=== PATIENT | female | born 1980 | race Caucasian/White ===

== ENCOUNTER 2017-08-10 13:07 | Emergency (ER) | payer MEDICAID, OTHER ==
[2017-04-20 17:43] VITALS: Wt 81.6 kg
[~2017-08-10 13:07] MED LIST: AZIT500T47 PO; BACDS PO; CYCL-332 PO; IBU800 PO; IBUP800T37 PO; IRON1TAB55 PO; LOR5/325 PO; OXYC-717 PO; OXYC-865 PO; PER PO; SULF1TAB24 PO
--- NOTE | 2017-08-10 13:39 | ER Report ---
History and Physical Time Seen By MD: 13:33 Hx. of Stated Complaint: pt reports intermittent R side back pain radiating to back HPI/ROS CHIEF COMPLAINT: Right-sided flank pain HISTORY OF PRESENT ILLNESS: Patient is a 37-year-old female who presents to the emergency department for evaluation of right-sided flank pain that radiates into the groin which has been intermittent over the past 1-2 weeks. Last menstrual period was approximately 4 weeks ago and reportedly normal. Currently she states the pain is very mild less than 1 out of 10 in intensity. No other associated features. Patient has had episodes where the pain does come on and is quite severe. She denies any fevers or chills. She denies any abnormal vaginal bleeding. She was seen by her AVIATION CONSULTANT today Dr. Zuñiga who did a pelvic exam along with cultures. Apparently he also dmitriy some blood work but that is not available resulted in the computer at this time. She denies any recent trauma. It was suggested that she come to the emergency department for further evaluation OBTAIN ultrasound REVIEW OF SYSTEMS: Respiratory: No cough, no dyspnea. Cardiovascular: No chest pain, no palpitations. Gastrointestinal: No vomiting, no abdominal pain. Right-sided flank pain Musculoskeletal: No back pain. Allergies: Coded Allergies: Penicillins (Unverified Allergy, Unknown, 01/03/16) Home Meds Discontinued Scripts Hydrocodone Bit/Acetaminophen (HYDROCODON-ACETAMINOPHEN 5-325) 1 Each Tablet, 1 EACH PO Q4-6H Y for PAIN, #10 TAB 0 Refills Prov:BRANDON JOHNSON MD 04/21/17 Ibuprofen (IBUPROFEN) 800 Mg Tablet, 1 TAB PO Q8H Y for PAIN, #30 TAB 0 Refills Take with food for pain no closer than every 8 hours. Prov:BRANDON JOHNSON MD 04/21/17 Sulfamethoxazole/Trimethoprim (SULFAMETHOXAZOLE-TMP DS TABLET) 1 Each Tablet, 1 EACH PO BID, #14 TAB 0 Refills Prov:BRANDON JOHNSON MD 04/21/17 Past Medical/Surgical History Noncontributory Hx Smoking: No Smoking Status: Never Smoker Exposure to Second Hand Smoke?: No Hx Substance Use Disorder: No Hx Alcohol Use: No Constitutional Vital Sign - Last 24 Hours 08/10/17 13:15 Temp 99.0 Pulse 68 Resp 16 B/P (MAP) 136/70 Pulse Ox 98 O2 Delivery Room Air Physical Exam General Appearance: The patient is alert, has no immediate need for airway protection and no current signs of toxicity. Eyes: Pupils equal and round no injection. Respiratory: Chest is non tender, lungs are clear to auscultation. Cardiac: regular rate and rhythm Gastrointestinal: Abdomen is soft and non tender, no masses, bowel sounds normal. Musculoskeletal: Neck: Neck is supple and non tender. Extremities have full range of motion and are non tender. Skin: No rashes or lesions. Medical Decision Making Data Points Laboratory Hematology Test 08/10/17 13:12 Urine Color Straw Urine Clarity Clear Urine pH 7.0 pH (4.8-9.5) Urine Specific [place] 1.012 Urine Protein Negative mg/dL (NEGATIVE) Urine Glucose (UA) Negative mg/dL (NEGATIVE) Urine Ketones Negative mg/dL (NEGATIVE) Urine Blood Moderate (NEGATIVE) Urine Nitrite Negative (NEGATIVE) Urine Bilirubin Negative (NEGATIVE) Urine Urobilinogen Negative mg/dL (0.2-1.9) Urine Leukocyte Esterase Negative (NEGATIVE) Urine RBC 4 /HPF (0-2/HPF) Urine WBC <1 /HPF (0-5/HPF) Urine Squamous Epithelial Cells Many /LPF (</=FEW) Urine Bacteria Few /HPF (NONE-FEW) Urine Mucus None /HPF (NONE-FEW) Urine HCG, Qualitative Negative (NEGATIVE) Chemistry Test 08/10/17 13:12 Urine Color Straw Urine Clarity Clear Urine pH 7.0 pH (4.8-9.5) Urine Specific [place] 1.012 Urine Protein Negative mg/dL (NEGATIVE) Urine Glucose (UA) Negative mg/dL (NEGATIVE) Urine Ketones Negative mg/dL (NEGATIVE) Urine Blood Moderate (NEGATIVE) Urine Nitrite Negative (NEGATIVE) Urine Bilirubin Negative (NEGATIVE) Urine Urobilinogen Negative mg/dL (0.2-1.9) Urine Leukocyte Esterase Negative (NEGATIVE) Urine RBC 4 /HPF (0-2/HPF) Urine WBC <1 /HPF (0-5/HPF) Urine Squamous Epithelial Cells Many /LPF (</=FEW) Urine Bacteria Few /HPF (NONE-FEW) Urine Mucus None /HPF (NONE-FEW) Urine HCG, Qualitative Negative (NEGATIVE) Urinalysis Test 08/10/17 13:12 Urine Color Straw Urine Clarity Clear Urine pH 7.0 pH (4.8-9.5) Urine Specific [place] 1.012 Urine Protein Negative mg/dL (NEGATIVE) Urine Glucose (UA) Negative mg/dL (NEGATIVE) Urine Ketones Negative mg/dL (NEGATIVE) Urine Blood Moderate (NEGATIVE) Urine Nitrite Negative (NEGATIVE) Urine Bilirubin Negative (NEGATIVE) Urine Urobilinogen Negative mg/dL (0.2-1.9) Urine Leukocyte Esterase Negative (NEGATIVE) Urine RBC 4 /HPF (0-2/HPF) Urine WBC <1 /HPF (0-5/HPF) Urine Squamous Epithelial Cells Many /LPF (</=FEW) Urine Bacteria Few /HPF (NONE-FEW) Urine Mucus None /HPF (NONE-FEW) Urine HCG, Qualitative Negative (NEGATIVE) EKG/Imaging Imaging Ultrasound shows a resolving right corpus luteal cyst. ED Course/Re-evaluation ED Course 08/10/2017 1:37:08 pm patient with right-sided flank pain. Bedside ultrasound reveals normal appearance of the kidney without evidence of hydronephrosis. Urinalysis shows moderate blood. Patient did have a MANAGER TITLE exam by her AVIATION CONSULTANT today. Blood was drawn and cervical cultures were obtained. The results of these tests are not yet available. Plan will be to obtain a transvaginal non-OB ultrasound. Looking for potential ovarian cyst. If normal will consider noncontrast CT of the abdomen and pelvis to consider for Decision to Disposition Date: Aug 10, 2017 Decision to Disposition Time: 14:32 Depart Departure Latest Vital Signs Vital Signs Date Time Temp Pulse Resp B/P (MAP) Pulse Ox O2 Delivery O2 Flow Rate FiO2 08/10/17 13:15 99.0 68 16 136/70 98 Room Air Impression: Primary Impression: Ovarian cyst Condition: Improved Disposition: HOME OR SELF-CARE Referrals: NICOLE ZUÑIGA MD (PCP) Follow-up with Dr. Zuñiga for your blood work as well as for your MANAGER TITLE cultures. Patient Instructions: Ovarian Cyst (DC) Problem Qualifiers Primary Impression: Ovarian cyst Laterality: right Qualified Codes: N83.201 - Unspecified ovarian cyst, right side LELE BERNABE MD Aug 10, 2017 13:39
[2017-08-10 14:30] VITALS: BP 115/71
--- NOTE | 2017-08-10 15:25 | RADIOLOGY IMAGING REPORT ---
FACILITY: [facility] [place] PATIENT NAME: Sherrill Perla : 1980 MR: [id number] V: [id number] EXAM DATE: ORDERING PHYSICIAN: LELE BERNABE TECHNOLOGIST: Location: [facility] [place] Patient: Sherrill Perla : 1980 Visit/Account:[id number] Date of Sevice: 08/10/2017 Pelvic ultrasound Comparison: Limited OB ultrasound dated 04/20/2017. History: Right pelvic pain. Findings: Standard endovaginal pelvic ultrasound with color flow and spectral analysis. 3-D imaging was performed by the technologist according to protocols developed by the radiologists an d the facility radiology staff. Casing Running Machine Tender images are stored on PACS. Uterus: Uterus measurement: 9.5 x 4.5 x 6.7 cm Endometrium measurement: 13 mm Small nabothian cysts. No suspicious mass or vascular abnormality. Adnexa: Right ovary: 3.3 x 1.8 x 2.7 cm Left ovary: 3.2 x 2.0 x 2.8 cm 1.6 x 1.6 x 1.2 cm corpus luteum cyst in the right ovary. 1.7 cm simple cyst in the left ovary. Holly l ovarian blood flow. Free fluid: Mild free fluid in the right lower quadrant. Urinary bladder: Empty IMPRESSION: 1. Mild free fluid in the right lower quadrant. 2. 1.6 x 1.6 x 1.2 cm corpus luteum cyst in the right ovary. 3. 1.7 cm simple cyst in the left ovary. 4. Normal ovarian blood flow. Report Dictated By: Vinicius Mccullough MD at 08/10/2017 3:16 PM Report E-Signed By: Vinicius Mccullough MD at 08/10/2017 3:21 PM WSN:[id number]
== END 2017-08-10 14:36 | disposition home or self-care (01) ==
LOC: ER 13:20
DX: N83.201 Unspecified ovarian cyst, right side (principal)
CPT/HCPCS: 76830; 81001; 81025; 99283